=== PATIENT | male | born 1980 | race Caucasian/White ===

== ENCOUNTER 2019-06-10 11:37 | Inpatient (IN) | payer OTHER ==
[~2019-06-10] VITALS: Ht 167.6 cm; Wt 86.2 kg
--- NOTE | 2019-06-10 11:44 | NUR ---
PT BROUGHT IN BY MOTHER WITH C/O CP. PT HAS HX OF HIGH BP. AT BEDSIDE PT IS AAOX4. RESPS E/U. SKIN IS PINK, WARM AND DRY. PERRLA. PT PLACED ON MONITOR. BED RAILS UP X1 FOR SAFETY. PT ORIENTED TO ROOM, USE OF CALL CHAPMAN AND BED IN LOWEST POSITION. PT IS CALM AND COOPERATIVE. PT AMBULATED FROM LOBBY TO ED WITH STEADY GAIT. PT AWAITING MSE.
[2019-06-10 12:39] LABS: CALCIUM 9.1 mg/dL (8.5-10.1); CARBON DIOXIDE 26.9 mmol/L (21-32); CHLORIDE SERUM 107 mmol/L (98-107); CREATININE SERUM 1.1 mg/dL (0.7-1.3); GFR1 > 60 mL/min; GLUCOSE SERUM 105 mg/dL (74-106); SODIUM SERUM 144 mmol/L (136-145)
[2019-06-10 12:52] LABS: ALBUMIN 3.6 g/dL (3.4-5.0); ALKALINE PHOSPHATASE 126 U/L (46-116); ALT/SGPT 96 U/L (16-63); AMYLASE 79 U/L (25-115); AST/SGOT 39 U/L (15-37); BILIRUBIN TOTAL 0.31 mg/dL (0.20-1.00); CHOLESTEROL 276 mg/dL (<200); HDL CHOLESTEROL 46 mg/dL (40-60); LIPASE 281 IU/L (73-393); MAGNESIUM 2.1 mg/dL (1.8-2.4); T4(THYROXINE) 5.8 ug/dL (4.7-13.3); TOTAL PROTEIN, SERUM 7.3 g/dL (6.4-8.2)
--- NOTE | 2019-06-10 12:54 | NUR ---
PT BROUGHT IN BY SPOUSE WITH C/O HEADACHE AND HIGH BP. PT REPORTS HAVING THIS INTERMITTENT FOR 6 YEARS AND DOES NOT TAKE ANY MEDICATIONS AT THE MOMENT. AT BEDSIDE PT IS AAOX4. RESPS E/U. SKIN IS PINK, WARM AND DRY. PERRLA. PT PLACED ON MONITOR. BED RAILS UP X1 FOR SAFETY. PT ORIENTED TO ROOM, USE OF CALL CHAPMAN AND BED IN LOWEST POSITION. PT IS CALM AND COOPERATIVE. PT AMBULATED FROM LOBBY TO ED WITH STEADY GAIT. PT AWAITING MSE.
[2019-06-10 12:59] LABS: UA SPECIFIC GRAVITY 1.025 (1.005-1.035); microscopic required? YES; urine erythrocyte NEGATIVE (NEGATIVE)
--- NOTE | 2019-06-10 13:11 | NUR ---
DR. SOTO UPDATED ON PT STATUS. PT CALM AND COOPERATIVE, JOKING WITH WHO'S AT BEDSIDE. RESPS E/U, SKIN IS PINK, WARM AND DRY.
[2019-06-10 13:18] LABS: AMPHETAMINE QUAL UR NONE DETECTED (See below)
[2019-06-10 14:36] LABS: BASOPHIL % 0.4 % (0-2); PLATELET COUNT 230 x10^3mcL (130-400); RED CELL DISTRIBUTION WIDTH 12.9 % (11.5-14.5)
--- NOTE | 2019-06-10 15:45 | NUR ---
RECEIVED ADMISSION ORDERS FROM DR. ALVAREZ.
--- NOTE | 2019-06-10 17:19 | NUR ---
PT RESTING IN POSITION OF COMFORT. NO ACUTE DISTRESS NOTED AT THIS MOMENT. RESPS E/U, SKIN IS PINK, WARM AND DRY.
--- NOTE | 2019-06-10 17:29 | NUR ---
REPORT HAND-OFF TO TE JASSO FROM TELE UNIT.
[2019-06-10 18:17] VITALS: BP 119/79
--- NOTE | 2019-06-10 18:28 | NUR ---
RECEIVED PT FROM ER, PT ADMIT FOR CHF, HTN, PT IS A/O X4, VERBAL RESPONSIVE, ABLE TO TELL WHAT HE NEEDS. LUNG SOUND CLEAR BILATERAL, NO COUGH, NO SOB, PT IS ON TELE 4. NSR, DENY ANY CHEST PAIN OR DISCOMFORT. BOWEL SOUND PRESENT ALL 4 QUADRANTS, NO DISTENTION, NO TENDER. PEDAL PULSE PRESENT BOTH FEET, TRACE EDEMA BLE, IV AT LEFT AC, NO LEAKING, NO INFILTRATION. ALL ADLS ASSIST, ALL NEED MET, CALL LIGHT IN REACH, WILL CONTINUE TO MONITOR.
--- NOTE | 2019-06-10 19:30 | NUR ---
PT IS A/O x4. ON TELE #4, SR WITH ELEVATED T WAVES. DENIES ANY CHEST PAIN OR PRESSURE. PULSES ARE PRESENT. TRACE EDEMA ON BLE. LUNGS CLEAR IN ALL FEILDS. ON RA, DENIES ANY SOB. EQUAL CHEST RISE AND FALL. NO SIGN OF RESP DISTRESS. BOWEL SOUNDS PRESENT x4. DENIES ANY ABD DISTRESS. SKIN WARM AND INTACT. DENIES ANY PAIN AT THIS TIME. IV ON LAC INTACT AND PATENT. BED IS AT LOWEST SETTING. CALL LIGHT WITHIN REACH. WILL CONTINUE TO MONITOR.
[2019-06-10 21:42] VITALS: BP 126/79
--- NOTE | 2019-06-11 03:32 | NUR ---
PT IS RESTING IN BED WITH BOTH EYES CLOSED. BREATHING EVEN AND UNALBORED. NO SIGN OF DISTRESS NOTED. BED IS AT LOWEST SETTING. CALL LIGHT WITHIN REACH. WILL CONTINUE TO MONITOR.
[2019-06-11 05:45] VITALS: BP 126/81
--- NOTE | 2019-06-11 06:49 | NUR ---
PT IS RESTING IN BED. DENIES ANY PAIN OR DISTRESS. NO ACUTE EVENT OCCURED AT NIGHT. BED IS AT LOWEST SETTING. CALL LIGHT WITHIN REACH. WILL ENDORSE TO AM NURSE.
--- NOTE | 2019-06-11 07:55 | NUR ---
RECEIVED AWAKE, ALERT AND ORIENTED. NO RESP. DISTRESS NOTED. NO C/O PAIN OR DISCOMFORT. VS WNL. HL PATENT. CALL LIGHT WITHIN REACH. WILL CONTINUE WITH PLAN OF CARE.
[2019-06-11 08:20] VITALS: BP 142/85
[2019-06-11 10:23] VITALS: BP 142/85
[2019-06-11] MEDS ORDERED: COR6 PO (11:30)
[2019-06-11] MEDS ORDERED: HYDROCHLOROTHIA25 MG PO (11:34)
[2019-06-11 11:42] VITALS: BP 119/80
--- NOTE | 2019-06-11 12:20 | NUR ---
PT DC'D HOME IN NO DISTRESS.AWAKE.ALERT AND ORIENTED. NO CHANGES IN VS. NO C/O PAIN OR DISCOMFORT AT THIS TIME. DC INSTRUCTIONS REVIEWED WITH PT AND FAMILY . RX GIVEN. HL REMOVED AND SITE CLEAR.PERSONAL BELONGINGS TAKEN HOME.
== END 2019-06-11 12:13 | disposition home or self-care (01) | DRG 199 ==
LOC: ED 11:37 → DU 15:43
PROVIDERS: Emergency Medicine; ADMIT Internal Medicine Pulmonary Disease
DX: I16.0 Hypertensive urgency (principal); I50.41 Acute combined systolic (congestive) and diastolic (congestive) heart failure; I11.0 Hypertensive heart disease with heart failure; E66.9 Obesity, unspecified; E78.00 Pure hypercholesterolemia, unspecified; F12.90 Cannabis use, unspecified, uncomplicated; F17.210 Nicotine dependence, cigarettes, uncomplicated; Z91.14 Patient's other noncompliance with medication regimen; Z87.11 Personal history of peptic ulcer disease
CPT/HCPCS: 83880; 99406; G0378; J0696; J1885; J1940; J3490

== ENCOUNTER 2019-06-24 10:38 | Emergency (ER) | payer OTHER ==
[~2019-06-24] VITALS: Ht 167.6 cm; Wt 90.5 kg
[~2019-06-24 10:38] MED LIST: COR6 PO; HYDROCHLOROTHIA25 MG PO
[2019-06-24 10:40] VITALS: Ht 167.6 cm; Wt 90.5 kg
[2019-06-24 11:04] LABS: BASOPHIL % 0.4 % (0-2); PLATELET COUNT 240 x10^3mcL (130-400); RED CELL DISTRIBUTION WIDTH 12.3 % (11.5-14.5)
[2019-06-24 11:48] LABS: CALCIUM 9.3 mg/dL (8.5-10.1); CARBON DIOXIDE 33.4 mmol/L (21-32); CHLORIDE SERUM 101 mmol/L (98-107); CREATININE SERUM 1.2 mg/dL (0.7-1.3); GFR1 > 60 mL/min; GLUCOSE SERUM 95 mg/dL (74-106); POTASSIUM SERUM 3.8 mmol/L (3.5-5.1); SODIUM SERUM 143 mmol/L (136-145)
[2019-06-24 11:52] LABS: ALBUMIN 4.4 g/dL (3.4-5.0); ALKALINE PHOSPHATASE 111 U/L (46-116); ALT/SGPT 67 U/L (16-63); AST/SGOT 30 U/L (15-37); BILIRUBIN TOTAL 0.7 mg/dL (0.20-1.00); TOTAL PROTEIN, SERUM 8.1 g/dL (6.4-8.2)
[2019-06-24 13:04] VITALS: BP 149/99
== END 2019-06-24 13:20 | disposition home or self-care (01) ==
LOC: ED 10:38
DX: R07.89 Other chest pain (principal); T39.315A Adverse effect of propionic acid derivatives, initial encounter; I11.0 Hypertensive heart disease with heart failure; I50.9 Heart failure, unspecified; E78.00 Pure hypercholesterolemia, unspecified; Y92.89 Other specified places as the place of occurrence of the external cause
CPT/HCPCS: 36415; J7512; Q0092

== ENCOUNTER 2019-09-28 14:55 | Emergency (ER) | payer OTHER ==
[~2019-09-28] VITALS: Ht 160 cm; Wt 103.9 kg
[2019-09-28 15:01] VITALS: Ht 160 cm; Wt 103.9 kg
[2019-09-28 15:27] LABS: microscopic required? NO
[2019-09-28 15:33] LABS: UA SPECIFIC GRAVITY 1.025 (1.005-1.035); urine erythrocyte NEGATIVE (NEGATIVE)
[2019-09-28 15:35] LABS: PLATELET COUNT 247 x10^3mcL (130-400); RED CELL DISTRIBUTION WIDTH 12.2 % (11.5-14.5)
[2019-09-28 15:46] LABS: CALCIUM 8.7 mg/dL (8.5-10.1); CARBON DIOXIDE 31.2 mmol/L (21-32); CHLORIDE SERUM 106 mmol/L (98-107); CREATININE SERUM 1.2 mg/dL (0.7-1.3); GFR1 > 60 mL/min; GLUCOSE SERUM 109 mg/dL (74-106); POTASSIUM SERUM 3.9 mmol/L (3.5-5.1); SODIUM SERUM 143 mmol/L (136-145)
[2019-09-28 15:53] LABS: ALBUMIN 3.7 g/dL (3.4-5.0); ALKALINE PHOSPHATASE 111 U/L (46-116); ALT/SGPT 88 U/L (16-63); BILIRUBIN TOTAL 0.4 mg/dL (0.20-1.00); TOTAL PROTEIN, SERUM 7.6 g/dL (6.4-8.2)
[2019-09-28 16:13] LABS: AST/SGOT 46 U/L (15-37)
[2019-09-28 18:45] VITALS: BP 158/90
== END 2019-09-28 18:47 | disposition home or self-care (01) ==
LOC: ED 14:55
DX: I11.0 Hypertensive heart disease with heart failure (principal); I50.9 Heart failure, unspecified; R07.89 Other chest pain; R10.9 Unspecified abdominal pain; E78.00 Pure hypercholesterolemia, unspecified
CPT/HCPCS: J3490; J7030; Q0092; Q9967

== ENCOUNTER 2019-10-02 12:58 | Observation (INO) | payer OTHER ==
[~2019-10-02] VITALS: Ht 167.6 cm; Wt 104.3 kg
[2019-10-02 13:11] VITALS: Ht 167.6 cm; Wt 104.3 kg
--- NOTE | 2019-10-02 13:30 | NUR ---
PT HERE FOR C/O HBP STATING THAT AN URGENT CARE HE WAS AT CHECKED HIS BP AND IT WAS IN THE 200'S. PT REPORTS ONSET OF ARORA WHILE AT THAT URGENT CARE. HX OF HBP AND REPORTS TAKING MEDICATIONS FOR IT. PT IS PLEASANT, CALM, AND IN NO DISTRESS
--- NOTE | 2019-10-02 13:36 | NUR ---
MSE COMPLETED BY DR MENDOZA
--- NOTE | 2019-10-02 14:20 | NUR ---
UDS COLLECTED AND SENT TO LAB. TORADOL IM GIVEN. PAIN 10 (HEADACHE). 165/107 84 20 97 ON RA. STATES ALL NEEDS MET AT THIS TIME.
[2019-10-02 14:45] LABS: AMPHETAMINE QUAL UR NONE DETECTED (See below)
--- NOTE | 2019-10-02 15:28 | NUR ---
DR MENDOZA AT BEDSIDE FOR RE EVAL OF BP.
--- NOTE | 2019-10-02 15:36 | NUR ---
REMAINING LABETALOL 10MG IVP WAS GIVEN FOR HBP.
[2019-10-02] MEDS ORDERED: NOR10 PO (16:01)
[2019-10-02] MEDS ORDERED: KAPVAY0.1 MG PO (16:01)
[2019-10-02] MEDS ORDERED: LOSARTAN POTASS50 M1 PO (16:02)
--- NOTE | 2019-10-02 16:30 | NUR ---
PT REPORTS ARORA IMPROVEMENT AFTER MORPHINE ADM
--- NOTE | 2019-10-02 17:45 | NUR ---
PT SITTING ON [facility]. AWAITING BED AVAILABILITY FOR ADMISSION. REMAINS NSR ON CM
[2019-10-02 18:35] LABS: BASOPHIL % 0.8 % (0-2); PLATELET COUNT 260 x10^3mcL (130-400); RED CELL DISTRIBUTION WIDTH 13.2 % (11.5-14.5)
--- NOTE | 2019-10-02 18:46 | NUR ---
ROOM AVAILABLE NOW. CALLING MATTY FOR REPORT
--- NOTE | 2019-10-02 19:16 | NUR ---
REPORT GIVEN TO SAM TIWARI
[2019-10-02 21:38] VITALS: BP 131/86
--- NOTE | 2019-10-02 22:30 | NUR ---
RECEIVED PT FROM ED [facility]IA [facility] [facility]. WITH COMPLAINTS OF HEADACHE , DIZZINESS AND INCREASE B/P. A/O X4. DENIES PAIN OR ANY DISCOMFORT AT THIS TIME. RESP. EVEN AND UNLABORED. LUNG SOUNDS CLEAR BILAT. ON ROOM AIR, NO ACUTE DISTRESS NOTED. AFEBRILE AND VITAL SIGNS STABLE. PLACED ON TELE#25, SR ON THE MONITOR. DENIES CP OR PRESSURE. ABD. SOFT, NON DISTENDED, BS ACTIVE, NO N/V NOTED. HL TO LT HAND, INTACT AND PATENT. SKIN WARM AND DRY TO TOUCH. INTACT AND NO EDEMA NOTED. AMBULATORY. ORIENTED TO ROOM AND ENVIRONMENT. BED IN LOW POSITION, CALL LIGHT PLACED WITHIN REACH. WILL CONTINUE TO MONITOR.
--- NOTE | 2019-10-03 00:36 | NUR ---
DUE MEDS GIVEN ORDERED, REBA. WELL. DIFF. SLEEPING AMBIEN GIVEN ORDERED,CALL LIGHT WITHIN REACH. WILL CONTINUE TO MONITOR.
--- NOTE | 2019-10-03 02:55 | NUR ---
RESTING QUIETLY, WITH EYES CLOSED, APPEARS ASLEEP, EASILY AROUSABLE. RESP. EVEN AND UNLABORED.NO ACUTE DISTRESS NOTED.
--- NOTE | 2019-10-03 06:22 | NUR ---
SLEPT WELL. AFEBRILE AND VITAL SIGNS STABLE. RESP. EVEN AND UNLABORED. NO ACUTE DISTRESS NOTED. REMAINS SR ON THE MONITOR, DENIES CP OR ANY DISCOMFORT AT THIS TIME. DUE MEDS GIVEN ORDERED, REBA. WELL. KEPT COMFORTABLE. WILL CONTINUE TO MONITOR.
[2019-10-03 06:33] VITALS: BP 97/54
--- NOTE | 2019-10-03 07:25 | NUR ---
RECEIVED REPORT FROM STAFF PHYSICAL THERAPIST NURSE .PATIENT LYING IN BED AWAKE, C/O PAIN IN HEAD 08/05, OFFERED TYLENOL PT REFUSED STATED IT DOSEN'T HEL[P ME. OFFERED REPOSITIONING AND RELAXATION TECHNIQUES, PT WAS ABLE TO SLEEP WITH AMBIEN . AWAITING DR CERRATO FOR FURTHER ASSESSMENT. IN ON LEFT HAND OATENT AND INTACT. PT A&O X4, NO S/S OF RESPIRATORY DISTRESS. ALL QUESTIONS AND CONCERNS ADDRESSED AT THIS TIME. WILL CONTINUE TO MONITOR.
[2019-10-03 07:54] LABS: BASOPHIL % 1.3 % (0-2); PLATELET COUNT 215 x10^3mcL (130-400); RED CELL DISTRIBUTION WIDTH 12.9 % (11.5-14.5)
[2019-10-03 08:29] VITALS: BP 95/65
--- NOTE | 2019-10-03 09:30 | NUR ---
PT SITTING UP IN BED , HELD BP MEDS FOR BP BELOW 100. ALL NEEDS ATTENDED TO CALL LIGHT WITHIN REACH BED IN LOW POSITION. WILL CONTINUE TO MONITOR.
--- NOTE | 2019-10-03 09:45 | NUR ---
ADMINISTERED MORPHINE IVP PER MAR FOE HEADACHE. PT TOLERATED WELL NO ADVERSE REACTIONS NOTED . WILL CONTINUE TO MONITOR.
[2019-10-03 11:13] LABS: ALBUMIN 3.7 g/dL (3.4-5.0); ALKALINE PHOSPHATASE 79 U/L (46-116); ALT/SGPT 145 U/L (16-63); AST/SGOT 81 U/L (15-37); BILIRUBIN TOTAL 0.3 mg/dL (0.20-1.00); CALCIUM 8.8 mg/dL (8.5-10.1); CARBON DIOXIDE 26.3 mmol/L (21-32); CHLORIDE SERUM 104 mmol/L (98-107); CREATININE SERUM 1.3 mg/dL (0.7-1.3); GFR1 > 60 mL/min; GLUCOSE SERUM 100 mg/dL (74-106); SODIUM SERUM 141 mmol/L (136-145); TOTAL PROTEIN, SERUM 7.2 g/dL (6.4-8.2)
--- NOTE | 2019-10-03 12:01 | NUR ---
ECHOCARDIOGRAM PENDING-HAD TEST ONE MONTH AGO-[facility]-DR SARAH -[phone]
[2019-10-03 12:13] VITALS: BP 113/62
--- NOTE | 2019-10-03 12:26 | NUR ---
PATIENT LEFT AMA, PAPER SIGNED V/S STABLE BP 110/80 HR 67 TEMP 98.6 SP02 98% RA, D/C'D IV DRESSING APPLIED. HEART MONITOR TAKEN OFF AND GIVEN TO TECH. PRESCRITIONS GIVEN AND EDUACATION GIVEN FOR LEAVING AMA. ADVISED PT TO FOLLOW UP WITH NEUROLOGIST PT STATED HE ALREADY HAS. PT STATED HE WANTED TO GO TO HIS [facility]UGH[facility] [place] TODAY THAT HE'LL DO THE MRI WITH THE NEUROLOGIST. DR CERRATO NOTIFIED. PT DENIES ANY PAIN AT THIS TIME. ALL QUESTIONS AND CONCERNS ADDRESSED PT ESCORTED WITH TONY CUEVAS.
--- NOTE | 2019-10-04 07:00 | NUR ---
ECHOCARDIOGRAM NOT DONE PT WAS DISCHARGED.
== END 2019-10-03 12:25 | disposition left against medical advice (07) | DRG 199 ==
LOC: ED 12:58 → DU 15:57
PROVIDERS: Specialist; ADMIT Internal Medicine
DX: I16.0 Hypertensive urgency (principal); K76.0 Fatty (change of) liver, not elsewhere classified; N28.1 Cyst of kidney, acquired; E66.9 Obesity, unspecified; F12.10 Cannabis abuse, uncomplicated; Z68.36 Body mass index [BMI] 36.0-36.9, adult; Z53.29 Procedure and treatment not carried out because of patient's decision for other reasons; Z87.891 Personal history of nicotine dependence
CPT/HCPCS: 97116-GP; G0378; J1644; J1885; J2270; J2405; J3010; J3490; Q0092

== ENCOUNTER 2020-07-16 15:12 | Emergency (ER) | payer OTHER ==
[~2020-07-16] VITALS: Ht 167.6 cm; Wt 111.6 kg
[~2020-07-16 15:12] MED LIST changes: +KAPVAY0.1 MG PO; +LOSARTAN POTASS50 M1 PO; +NOR10 PO
[2020-07-16 15:44] VITALS: Ht 167.6 cm; Wt 111.6 kg
[2020-07-16 17:17] LABS: BASOPHIL % 0.6 % (0-2); PLATELET COUNT 227 x10^3mcL (130-400); RED CELL DISTRIBUTION WIDTH 14.1 % (11.5-14.5)
[2020-07-16 17:23] LABS: CALCIUM 8.7 mg/dL (8.5-10.1); CARBON DIOXIDE 30.9 mmol/L (21-32); CHLORIDE SERUM 103 mmol/L (98-107); CREATININE SERUM 1.3 mg/dL (0.7-1.3); GFR1 > 60 mL/min; GLUCOSE SERUM 126 mg/dL (74-106); POTASSIUM SERUM 3.3 mmol/L (3.5-5.1); SODIUM SERUM 140 mmol/L (136-145)
[2020-07-16 17:28] LABS: ALBUMIN 3.8 g/dL (3.4-5.0); ALKALINE PHOSPHATASE 122 U/L (46-116); ALT/SGPT 178 U/L (16-63); AST/SGOT 77 U/L (15-37); TOTAL PROTEIN, SERUM 7.8 g/dL (6.4-8.2)
[2020-07-16 18:26] LABS: AMPHETAMINE QUAL UR NONE DETECTED (See below)
[2020-07-16 19:58] VITALS: BP 136/87
== END 2020-07-16 19:58 | disposition home or self-care (01) ==
LOC: ED 15:12
PROVIDERS: Emergency Medicine
DX: I50.9 Heart failure, unspecified (principal); E78.00 Pure hypercholesterolemia, unspecified; R51 Headache; I11.0 Hypertensive heart disease with heart failure
CPT/HCPCS: 83880; J0360; J2405; J3010; J3490; Q0092

== ENCOUNTER 2020-07-22 12:35 | Emergency (ER) | payer OTHER ==
[~2020-07-22] VITALS: Ht 167.6 cm; Wt 112.5 kg
[2020-07-22 12:52] VITALS: Ht 167.6 cm; Wt 112.5 kg
[2020-07-22 14:37] LABS: BASOPHIL % 1.5 % (0-2); PLATELET COUNT 205 x10^3mcL (130-400); RED CELL DISTRIBUTION WIDTH 14.1 % (11.5-14.5)
[2020-07-22 14:52] LABS: CALCIUM 8.3 mg/dL (8.5-10.1); CHLORIDE SERUM 103 mmol/L (98-107); CREATININE SERUM 1.1 mg/dL (0.7-1.3); GFR1 > 60 mL/min; GLUCOSE SERUM 116 mg/dL (74-106); POTASSIUM SERUM 3.5 mmol/L (3.5-5.1); SODIUM SERUM 141 mmol/L (136-145)
[2020-07-22 14:58] LABS: ALBUMIN 3.7 g/dL (3.4-5.0); ALKALINE PHOSPHATASE 108 U/L (46-116); ALT/SGPT 145 U/L (16-63); AST/SGOT 60 U/L (15-37); BILIRUBIN TOTAL 0.4 mg/dL (0.20-1.00); TOTAL PROTEIN, SERUM 7.7 g/dL (6.4-8.2)
[2020-07-22 15:25] LABS: AMPHETAMINE QUAL UR NONE DETECTED (See below)
[2020-07-22 16:29] VITALS: BP 152/78
== END 2020-07-22 16:29 | disposition home or self-care (01) ==
LOC: ED 12:35
PROVIDERS: Emergency Medicine
DX: I11.0 Hypertensive heart disease with heart failure (principal); I50.9 Heart failure, unspecified; H53.8 Other visual disturbances; E78.00 Pure hypercholesterolemia, unspecified
CPT/HCPCS: 83880; J0360; J2405; J3010; Q0092